=== PATIENT | female | born 1990 | race African-American/Black ===

== ENCOUNTER 2020-07-24 06:50 | Inpatient (IN) | payer OTHER ==
[2020-07-24] MEDS: DEXTROSE 5%-LACTATED RINGERS 1,000 ML IV SCH (07:10)
[2020-07-24 07:43] VITALS: BMI 43.4
[2020-07-24] MEDS ORDERED: OXYTOCIN 30 UNITS in 0.9% NS 30 UNIT/500 ML INFUS.BAG IVPB ONE (08:32)
[2020-07-24] MEDS ORDERED: OXYTOCIN 30 UNITS in 0.9% NS 30 UNIT/500 ML INFUS.BAG IVPB SCH (08:45)
[2020-07-24] MEDS ORDERED: BUTORPHANOL TARTRATE 1 MG/ML VIAL IVPB ONE (12:55)
[2020-07-24] MEDS ORDERED: PROMETHAZINE HCL 25 MG/1 ML VIAL IVPUSH ONE (12:55)
[2020-07-24] MEDS ORDERED: BUTORPHANOL TARTRATE 2 MG/ML VIAL ONE (12:56)
[2020-07-24] MEDS ORDERED: DEXTROSE 5%-LACTATED RINGERS 1,000 ML IV SCH (13:00)
[2020-07-24] MEDS ORDERED: FENTANYL/BUPIVACAINE/NS/PF - PCEA - 50 ML DISP.SYRIN EP ONE (14:32)
[2020-07-24] MEDS ORDERED: PCA PUMP NR ONE ×2 (14:32→21:26)
[2020-07-24] MEDS ORDERED: NALOXONE HCL 0.4 MG/ML VIAL IVPUSH PRN (14:38)
[2020-07-24] MEDS ORDERED: BUPIVACAINE HCL/PF 0.25% (2.5MG/ML) 10 ML VIAL ONE (14:39)
[2020-07-24] MEDS: FENTANYL/BUPIVACAINE/NS/PF - PCEA - 50 ML DISP.SYRIN EP SCH (15:00)
[2020-07-24] MEDS ORDERED: OXYTOCIN 20 UNITS in 0.9% NS 20 UNIT/1,000 ML INFUS.BAG IV ONE (19:13)
[2020-07-24] MEDS ORDERED: BENZOCAINE 20% 57 GM BOTTLE TP PRN (19:30)
[2020-07-24] MEDS ORDERED: WITCH HAZEL 50% (TUCKS) 40 PAD/JAR PAD TP PRN (19:30)
[2020-07-24] MEDS ORDERED: oxyCODONE HCL 5 MG TABLET PO PRN (19:30)
[2020-07-24] MEDS ORDERED: BISACODYL 10 MG SUPP.RECT RC PRN (19:30)
[2020-07-24] MEDS ORDERED: METHYLERGONOVINE MALEATE 0.2 MG/1 ML AMP IM PRN (19:30)
[2020-07-24] MEDS ORDERED: OXYTOCIN 20 UNITS in 0.9% NS 20 UNIT/1,000 ML INFUS.BAG IV SCH (19:30)
[2020-07-24] MEDS ORDERED: BENZOCAINE 28 GM HEMORRHOIDAL OINTMENT TP PRN (19:30)
[2020-07-24] MEDS: IBUPROFEN 600 MG TABLET (FP) PO PRN (21:56)
[2020-07-24] MEDS: ACETAMINOPHEN 325 MG TABLET (FP) PO PRN (21:56)
[2020-07-25 08:42] LABS: BASO % 0.2 % (0-2.0); EOS % 0.2 % (0-4.5); LYMPH % 12.2 % (8-40); MCH 22.7 pg (25.7-33.7); MEAN CELL VOLUME 70.9 fl (80-96); MEAN PLT VOLUME 8.1 fl (7.5-11.1); MONO % 5.4 % (3.8-10.2); PLATELET COUNT 290 K/MM3 (134-434); RBC 3.53 M/mm3 (3.60-5.2); RDW 18.2 % (11.6-15.6); WHITE BLOOD COUNT 13.2 K/mm3 (4.0-10.0)
[2020-07-25] MEDS: PRENATAL VITAMINS W/ FOLIC ACID TABLET (FP) PO SCH (09:09)
[2020-07-25] MEDS: DEXTROSE 5%-LACTATED RINGERS 1,000 ML IV SCH (09:09)
[2020-07-25] MEDS: IBUPROFEN 600 MG TABLET (FP) PO PRN ×2 (09:12→18:29)
[2020-07-25] MEDS: ACETAMINOPHEN 325 MG TABLET (FP) PO PRN ×2 (09:13→18:29)
[2020-07-25] MEDS ORDERED: SENNOSIDES/DOCUSATE COMBO (SENNA PLUS) TABLET (UD) PO PRN (22:00)
[2020-07-25] MEDS: FENTANYL/BUPIVACAINE/NS/PF - PCEA - 50 ML DISP.SYRIN EP SCH (22:55)
[2020-07-26] MEDS: IBUPROFEN 600 MG TABLET (FP) PO PRN (04:46)
[2020-07-26] MEDS: ACETAMINOPHEN 325 MG TABLET (FP) PO PRN (04:47)
[2020-07-26] MEDS: PRENATAL VITAMINS W/ FOLIC ACID TABLET (FP) PO SCH (09:35)
[2020-07-26 10:41] VITALS: BP 112/73; PULSE 109; TEMP 98.2
[2020-07-27 08:29] LABS: POC NITRAZINE POS
== END 2020-07-26 14:00 | disposition home or self-care (01) | DRG 807 ==
LOC: JLDR 06:50 → J3W 21:28
PROVIDERS: ADMIT Obstetrics & Gynecology; ATTEND Obstetrics & Gynecology
PROC: 10E0XZZ Delivery of Products of Conception, External Approach (ICD-10-PCS; principal; 2020-07-24)
PROC: 3E033VJ Introduction of Other Hormone into Peripheral Vein, Percutaneous Approach (ICD-10-PCS; 2020-07-24)
DX: O48.0 Post-term pregnancy (principal); Z37.0 Single live birth; O70.0 First degree perineal laceration during delivery; Z3A.40 40 weeks gestation of pregnancy
CPT/HCPCS: 36415; 59409; 83986-QW; 85025